=== PATIENT | male | born 1970 | race Caucasian/White ===

== ENCOUNTER 2024-02-10 16:21 | Emergency (ER) | payer OTHER, SELFPAY ==
--- NOTE | ~2024-02-10 | XR_ITS ---
XR chest 2V Ordering provider: Giselle Simmons PA-C History: 54 years Male with . cough, pain, lower leg swelling . Comparison: None. FINDINGS: MEDIASTINUM: The cardiac silhouette is not enlarged. LUNGS: No infiltrates, effusions or pneumothorax. Emphysematous changes of the lungs. OTHER: No free air under the diaphragm. IMPRESSION: No acute cardiopulmonary pathology. Reviewed, dictated and finalized at location A. REPORTING ANALYST
--- NOTE | ~2024-02-10 | US_ITS ---
BILATERAL LOWER EXTREMITY VENOUS ULTRASOUND Ordering provider: Giselle Simmons History: . pain in BLE . Comparison: None. FINDINGS: RIGHT LOWER EXTREMITY VEINS: --COMMON FEMORAL: Patent and free of thrombus. Normal compressibility, phasic flow and augmentation. --PROXIMAL SUPERFICIAL FEMORAL: Patent and free of thrombus. Normal compressibility, phasic flow and augmentation. --DISTAL SUPERFICIAL FEMORAL: Patent and free of thrombus. Normal compressibility, phasic flow and au gmentation. --POPLITEAL: Patent and free of thrombus. Normal compressibility, phasic flow and augmentation. --POSTERIOR TIBIAL: Patent and free of thrombus. Normal compressibility, phasic flow and augmentation . LEFT LOWER EXTREMITY VEINS: --COMMON FEMORAL: Patent and free of thrombus. Normal compressibility, phasic flow and augmentation. --PROXIMAL SUPERFICIAL FEMORAL: Patent and free of thrombus. Normal compressibility, phasic flow and augmentation. --DISTAL SUPERFICIAL FEMORAL: Patent and free of thrombus. Normal compressibility, phasic flow and au gmentation. --POPLITEAL: Patent and free of thrombus. Normal compressibility, phasic flow and augmentation. --POSTERIOR TIBIAL: Patent and free of thrombus. Normal compressibility, phasic flow and augmentation . IMPRESSION: Negative bilateral lower extremity venous US. No deep vein thrombosis. Reviewed, dictated and finalized at location A. [employer]
--- NOTE | ~2024-02-10 | CT_ITS ---
Procedure: CTA LE BI Ordering provider: Giselle Simmons History: . claudication, decreased sen/pulses in BLE . Comparison: None. Technique: CT angiogram of the lower extremities was performed following timed intravenous injection of contrast. Thin slice axial images were obtained. Radiation reduction technique utilized. The dose-length product was 544.93 mGy-cm.. 150 mL Omnipaque 350 was given IV. FINDINGS: LOWER EXTREMITIES: COMMON FEMORAL ARTERIES: Right: Atherosclerotic changes seen in the right. Left: Atherosclerotic changes. FEMORAL ARTERIES: Right: Narrowing in multiple areas with occlusion seen distally on the right side. Left: Atherosclerotic changes with occlusion in the mid thigh. A formation of the popliteal artery is seen distally. BILATERAL PROFUNDA FEMORA: Right: Normal in the right side. Left: Normal POPLITEAL ARTERIES: Right: Mild atherosclerotic changes on the right side Left: Mild atherosclerotic changes with 50% narrowing. TRIFURCATION AND THE POSTERIOR/ANTERIOR TIBIAL AND PERONEAL ARTERIES: Right: Occlusion of the anterior tibial artery in the proximal portion of the leg formation is seen d istally on the right with demonstration of the dorsalis pedis. The posterior tibial artery is seen do wn to the foramina. On the right side Left: Occlusion of the anterior tibial artery is seen proximally. Formation is seen distally with vis ualization of the anterior tibial artery. The posterior tibial artery is seen down to the foot. Doppl er imaging FLOW TO THE FOOT: Right: Patent dorsalis pedis. Flow demonstrated within the anterior and posterior tibial arteries bel ow the ankle. Left: The posterior tibial artery seen down to the foot. The anterior tibial artery is reformed dista lly with visualization of the dorsalis pedis. BONES AND SOFT TISSUES: Unremarkable. IMPRESSION: Bilateral atherosclerotic changes with areas of occlusion and variable degrees of narrowing as descri bed above. Doppler evaluation for the foot vascularity is advised. Reviewed, dictated and finalized at location A. SURE CRAFT SAILOR IMPRESSION: Bilateral atherosclerotic changes with areas of occlusion and variable degrees of narrowing as described above. Doppler evaluation for the foot vascularity is advised.
[2024-02-10 16:25] VITALS: BP 143/96; PULSE 103; RESP 20; TEMP 36.6; O2SAT 99
--- NOTE | 2024-02-10 17:12 | ED.EXTPRO ---
HPI - Extremity Problem General Chief complaint: Extremity Problem,Nontraumatic <MARAH Antunez Last Filed: 02/10/24 17:27> Stated complaint: BL leg pain from walking... <Giselle Simmons PA-C - Last Filed: 02/10/24 17:27> Time Seen by Provider: 02/10/24 17:12 <MARAH Antunez Last Filed: 02/10/24 17:27> Focused HPI: Patient is a 54 y/o male, with PMH of DM, who presents to the ED via EMS with report of lower extremity pain. Patient reports he was walking outside today [place] when he accidentally [place]. He states he began having very severe pain in his lower extremities with walking. States it felt like a burning sensation, pins and needles. States his legs gave out on him which caused him to fall. He does report over the last couple of months he has been having worsening pain in his legs with walking. Has not seen a doctor for this. Denies chest pain or difficulty breathing with exertion. Does admit to having a cough for the last 60 days. Denies fevers. Denies swelling in lower extremities. Has not taken anything for pain. GENERAL: Appears older than stated age, disheveled, and in no acute distress. HEAD: Normocephalic, atraumatic. CHEST: Clear to auscultation. ?No respiratory distress. HEART: Regular rate and rhythm.? MSK: Diffuse tenderness throughout bilateral lower extremities. No appreciable swelling. Lower extremities are slightly cool to the touch. Decreased pedal pulses, difficult to palpate. Delayed cap refill to feet/toes bilaterally, worse on right. NEURO: ?Alert and oriented x3. Patient screened in triage and initial orders placed.? ?Additional care and disposition to be based upon?diagnostic testing and treatment. <MARAH Antunez Last Filed: 02/10/24 17:27> Source: patient <MARAH Antunez Last Filed: 02/10/24 17:27> Mode of arrival: EMS <MARAH Antunez Last Filed: 02/10/24 17:27> Limitations: no limitations <MARAH Antunez Last Filed: 02/10/24 17:27> Related Data Allergies/Adverse reactions: Allergies Allergy/AdvReac Type Severity Reaction Status Date / Time No Known Allergies Allergy Verified 02/10/24 16:28 <MARAH Antunez Last Filed: 02/10/24 17:27> Review of Systems Review of Systems: All systems as dictated in HPI <MARAH Vanessa Last Filed: 02/11/24 01:50> Exam Narrative: GENERAL: Well-appearing, well-nourished, and in no acute distress. HEAD: Normocephalic, atraumatic. EYES: PERRLA and EOMI. ENT: Nares clear, no rhinorrhea or epistaxis. Mucous membranes moist. Oropharynx without tonsillar hypertrophy exudate or other lesions. NECK: Supple. No adenopathy or masses. CHEST: No respiratory distress. Clear to auscultation. No wheezes rales or rhonchi HEART: Regular rate and rhythm. No murmur heard. Normal peripheral pulses. ABDOMEN: Soft, nontender, nondistended, normal active bowel sounds. MSK: Normal range of motion. No edema. 1+ DP PT pulses symmetrically. cap refill less than 2 seconds symmetrically in the feet SKIN: Warm, dry, no rash. NEURO: Alert and oriented x4. No focal deficits. PSYCH: Normal mood and affect. <MARAH Vanessa Last Filed: 02/11/24 01:50> Course Vital Signs Vital signs: Vital Signs Temperature 97.8 F 02/10/24 16:25 Pulse Rate 103 H 02/10/24 16:25 Respiratory Rate 20 02/10/24 16:25 Blood Pressure 143/96 H 02/10/24 16:25 Pulse Oximetry 99 02/10/24 16:25 Oxygen Delivery Room Air 02/10/24 16:25 Temperature 97.8 F 02/10/24 16:25 Pulse Rate 85 02/10/24 23:01 Respiratory Rate 16 02/10/24 23:01 Blood Pressure 148/74 H 02/10/24 23:01 Pulse Oximetry 100 02/10/24 23:01 Oxygen Delivery Room Air 02/10/24 16:25 <Giselle Simmons PA-C - Last Filed: 02/10/24 17:27> Vital Signs Temperature 97.8 F 02/10/24 16:25 Pulse Rate 103 H 02/10/24 16:25 Respiratory Rate 20 02/10/24 16:25 Blood Pressure 143/96 H 02/10/24 16:25 Pulse Oximetry 99 02/10/24 16:25 Oxygen Delivery Room Air 02/10/24 16:25 Temperature 97.8 F 02/10/24 16:25 Pulse Rate 85 02/10/24 23:01 Respiratory Rate 16 02/10/24 23:01 Blood Pressure 148/74 H 02/10/24 23:01 Pulse Oximetry 100 02/10/24 23:01 Oxygen Delivery Room Air 02/10/24 16:25 <MARAH Vanessa Last Filed: 02/11/24 01:50> MDM - Extremity (Nontraumatic) MDM Narrative Medical decision making narrative: MSE by VERNA in triage. <MARAH Antunez Last Filed: 02/10/24 17:27> MSE by VERNA in triage. this is a 54-year-old male who presents to the ED for chief complaint of bilateral lower extremity pain after walking a great distance today. Vitals are normal. Exam reproduces a tingling pain with palpation to to BLE. He has 1+ DP and PT pulses on exam. Good cap refill bilaterally. Triage provider concerned faint pulses so CTA and ultrasound Dopplers ordered. Ultrasound Doppler bilateral lower extremity is negative. CTA bilateral lower extremities: IMPRESSION: Bilateral atherosclerotic changes with areas of occlusion and variable degrees of narrowing as described above. Doppler evaluation for the foot vascularity is advised.. re-evaluated the patient's lower extremities. He is not exhibiting signs of acute limb ischemia. CK was slightly elevated today but not enough to indicate rhabdomyolysis. Patient is not taking his medications for known diabetes. Suspect diabetic neuropathy setting an and as a cause for his symptoms today. Pt will be discharged in stable condition. Return precautions given and supportive measures discussed. Pt is understanding and agreeable with plan for discharge and follow-up with PCP. <MARAH Vanessa Last Filed: 02/11/24 01:50> Lab Data Result diagrams: 02/10/24 19:16 02/10/24 19:16 <Giselle Simmons PA-C - Last Filed: 02/10/24 17:27> Labs: Lab Results 02/10/24 Range/Units 19:16 WBC 12.6 H (4.5-10.0) K/mm3 RBC 4.86 (4.6-6.20) M/mm3 Hgb 14.2 (14.0-18.0) g/dL Hct 42.5 (42.0-52.0) % MCV 87.4 (80-100) fl MCH 29.2 (26-34) pg MCHC 33.4 (32-36) g/dl RDW 12.3 (11.5-14.5) % Plt Count 278 (150-375) k/mm3 MPV 10.7 H (7.4-10.4) fl Immature Gran % (Auto) 0.3 (0-0.5) % Neut % (Auto) 77.7 H (45.5-73.1) % Lymph % (Auto) 14.6 L (18.3-44.2) % [place] % (Auto) 7.1 (2.6-8.5) % Eos % (Auto) 0.1 (0-4.4) % Baso % (Auto) 0.2 (0.2-1.2) % Lymph # (Auto) 1.85 (0.9-3.2) K/mm3 [place] # (Auto) 0.9 H (0.1-0.6) K/mm3 Eos # (Auto) 0.0 (0-0.3) K/mm3 Baso # (Auto) 0.0 (0.0-0.1) K/mm3 Abs Immat Gran (auto) 0.04 H (0.00-0.031) K/mm3 Absolute Neuts (auto) 9.8 H (1.3-6.7) K/mm3 Absolute Nucleated RBC 0.000 (0.0-0.012) K/mm3 Nucleated RBC % 0.0 (0.0-0.2) % PT 14.2 (11.1-14.7) Seconds INR 1.1 APTT 26.5 (22.3-36.8) Seconds Sodium 140 (137-145) mmol/L Potassium 3.7 (3.4-5.0) mmol/L Chloride 104 (98-107) mmol/L Carbon Dioxide 27 (22-30) mmol/L Anion Gap 9 (4-12) mmol/L BUN 24 H (9-20) mg/dL Creatinine 1.30 (0.7-1.3) mg/dL Estim Creat Clear Calc 69 ml/min Estimated GFR 57 L (59 - ) Glucose 145 H (65-110) mg/dL Calcium 9.2 (8.4-10.2) mg/dL Magnesium 1.9 (1.6-2.3) mg/dL Total Bilirubin 1.2 (0.2-1.3) mg/dL AST 29 (17-59) U/L ALT 36 (6-50) U/L Alkaline Phosphatase 80 (38-126) U/L Total Creatine Kinase 448 H (55-170) U/L Total Protein 8.0 (6.3-8.2) g/dL Albumin 5.0 (3.5-5.1) g/dL <Gsielle Simmons PA-C - Last Filed: 02/10/24 17:27> Lab Results 02/10/24 Range/Units 19:16 WBC 12.6 H (4.5-10.0) K/mm3 RBC 4.86 (4.6-6.20) M/mm3 Hgb 14.2 (14.0-18.0) g/dL Hct 42.5 (42.0-52.0) % MCV 87.4 (80-100) fl MCH 29.2 (26-34) pg MCHC 33.4 (32-36) g/dl RDW 12.3 (11.5-14.5) % Plt Count 278 (150-375) k/mm3 MPV 10.7 H (7.4-10.4) fl Immature Gran % (Auto) 0.3 (0-0.5) % Neut % (Auto) 77.7 H (45.5-73.1) % Lymph % (Auto) 14.6 L (18.3-44.2) % [place] % (Auto) 7.1 (2.6-8.5) % Eos % (Auto) 0.1 (0-4.4) % Baso % (Auto) 0.2 (0.2-1.2) % Lymph # (Auto) 1.85 (0.9-3.2) K/mm3 [place] # (Auto) 0.9 H (0.1-0.6) K/mm3 Eos # (Auto) 0.0 (0-0.3) K/mm3 Baso # (Auto) 0.0 (0.0-0.1) K/mm3 Abs Immat Gran (auto) 0.04 H (0.00-0.031) K/mm3 Absolute Neuts (auto) 9.8 H (1.3-6.7) K/mm3 Absolute Nucleated RBC 0.000 (0.0-0.012) K/mm3 Nucleated RBC % 0.0 (0.0-0.2) % PT 14.2 (11.1-14.7) Seconds INR 1.1 APTT 26.5 (22.3-36.8) Seconds Sodium 140 (137-145) mmol/L Potassium 3.7 (3.4-5.0) mmol/L Chloride 104 (98-107) mmol/L Carbon Dioxide 27 (22-30) mmol/L Anion Gap 9 (4-12) mmol/L BUN 24 H (9-20) mg/dL Creatinine 1.30 (0.7-1.3) mg/dL Estim Creat Clear Calc 69 ml/min Estimated GFR 57 L (59 - ) Glucose 145 H (65-110) mg/dL Calcium 9.2 (8.4-10.2) mg/dL Magnesium 1.9 (1.6-2.3) mg/dL Total Bilirubin 1.2 (0.2-1.3) mg/dL AST 29 (17-59) U/L ALT 36 (6-50) U/L Alkaline Phosphatase 80 (38-126) U/L Total Creatine Kinase 448 H (55-170) U/L Total Protein 8.0 (6.3-8.2) g/dL Albumin 5.0 (3.5-5.1) g/dL <MARAH Vanessa Last Filed: 02/11/24 01:50> Discharge Plan Discharge Clinical Impression: Bilateral leg pain <MARAH Antunez Last Filed: 02/10/24 17:27> Patient Disposition: Home, Self-Care <Giselle Simmons PA-C - Last Filed: 02/10/24 17:27> Condition: Stable <Giselle Simmons PA-C - Last Filed: 02/10/24 17:27> Instructions: Antibiotic Form <Giselle Simmons PA-C - Last Filed: 02/10/24 17:27> Additional Instructions: your exam today was concerning for atherosclerotic arteries. You may need to see vascular surgery. Please follow-up with your doctor regarding these findings. Please also follow-up with rehabilitation technician for neuropathy. If you have any new or worsening symptoms please return to the ER for further evaluation. <Giselle Simmons PA-C - Last Filed: 02/10/24 17:27> Follow-up/Referrals: Macey Wilson DPM [Physician] - Rangel,Madeline Howe MD [Non-Staff] - <Giselle Simmons PA-C - Last Filed: 02/10/24 17:27> Time of Disposition: 22:41 <Giselle Simmons PA-C - Last Filed: 02/10/24 17:27> 22:41 <Eric Keenan PA-C - Last Filed: 02/11/24 01:50>
--- NOTE | 2024-02-10 17:15 | ECG_ITS ---
Test Date: 2024-02-10 19:12:08 Measurements Intervals [place] Rate: 83 P: 58 VA: 137 QRS: 53 QRSD: 89 T: 59 QT: 367 QTc: 434 Interpretive Statements SINUS RHYTHM No previous ECG available for comparison Electronically Signed On 02-11-2024 14:28:35 [employer]IO DISPATCHER by Reinier Florence M.D.
[2024-02-10 19:05] VITALS: BP 150/87; PULSE 92; RESP 19; O2SAT 97
[2024-02-10 19:33] LABS: Alanine Aminotransferase 36 U/L (6-50); Alkaline Phosphatase 80 U/L (38-126); Anion Gap 9 mmol/L (4-12); Aspartate Amino Transferase 29 U/L (17-59); Bilirubin,Total 1.2 mg/dL (0.2-1.3); Blood Urea Nitrogen 24 mg/dL (9-20); Calcium 9.2 mg/dL (8.4-10.2); Carbon Dioxide 27 mmol/L (22-30); Chloride 104 mmol/L (98-107); Creatine Kinase 448 U/L (55-170); Estimated CRCL calculation 69 ml/min; Estimated Glomerular Filt Rate 57; Glucose 145 mg/dL (65-110); Magnesium 1.9 mg/dL (1.6-2.3); Potassium 3.7 mmol/L (3.4-5.0); Sodium 140 mmol/L (137-145)
[2024-02-10 19:39] LABS: Basophils Percent Auto 0.2 % (0.2-1.2); Eosinophils Percent Auto 0.1 % (0-4.4); Hematocrit 42.5 % (42.0-52.0); Hemoglobin 14.2 g/dL (14.0-18.0); Immature Granulocyte Absolute 0.04 K/mm3 (0.00-0.031); Immature Granulocyte Percent A 0.3 % (0-0.5); Lymphocytes Absolute Auto 1.85 K/mm3 (0.9-3.2); Lymphocytes Percent Auto 14.6 % (18.3-44.2); Mean Corpuscular HGB Conc 33.4 g/dl (32-36); Mean Corpuscular Hemoglobin 29.2 pg (26-34); Mean Corpuscular Volume 87.4 fl (80-100); Mean Platelet Volume 10.7 fl (7.4-10.4); Monocytes Absolute Auto 0.9 K/mm3 (0.1-0.6); Monocytes Percent Auto 7.1 % (2.6-8.5); Neutrophils Absolute Auto 9.8 K/mm3 (1.3-6.7); Neutrophils Percent Auto 77.7 % (45.5-73.1); Platelet Count Result 278 k/mm3 (150-375); Red Blood Count 4.86 M/mm3 (4.6-6.20); Red Cell Distribution Width 12.3 % (11.5-14.5); White Blood Count 12.6 K/mm3 (4.5-10.0)
[2024-02-10 20:21] LABS: INR 1.1; Prothrombin Time 14.2 Seconds (11.1-14.7)
[2024-02-10 20:22] LABS: Partial Thromboplastin Time 26.5 Seconds (22.3-36.8)
[2024-02-10 23:01] VITALS: BP 148/74; PULSE 85; RESP 16; O2SAT 100
== END 2024-02-10 23:03 | disposition home or self-care (01) ==
PROVIDERS: Physician Assistant; Emergency Provider Physician Assistant
DX: M79.662 Pain in left lower leg (principal); M79.661 Pain in right lower leg; W16.112A Fall into natural body of water striking water surface causing other injury, initial encounter
CPT/HCPCS: 36415; 71046; 73706; 80053; 82550; 83735; 85025; 85610; 85730; 93005; 93970; 99284; Q9967